=== PATIENT | male | born 1975 | race Caucasian/White ===

== ENCOUNTER → 2018-04-04 17:05 | Outpatient (CLI) | payer OTHER, SELFPAY | PROVIDERS: Visit Provider Family Medicine | DX: J02.9 Acute pharyngitis, unspecified (principal) | CPT/HCPCS: 87070 ==

== ENCOUNTER → 2018-08-08 13:00 | Outpatient (CLI) | payer OTHER, SELFPAY | DX: Z23 Encounter for immunization (principal) | CPT/HCPCS: 90471; 90686 ==

== ENCOUNTER → 2018-10-26 07:59 | Outpatient (CLI) | payer OTHER, SELFPAY ==
[2018-10-26 11:39] LABS: Thyroid Stimulating Hormone 4.98 uIU/mL (0.47-4.68)
== END ==
PROVIDERS: Visit Provider Family Medicine
DX: Z13.29 Encounter for screening for other suspected endocrine disorder (principal)
CPT/HCPCS: 36415; 84443

== ENCOUNTER → 2019-06-12 13:00 | Outpatient (CLI) | payer OTHER, SELFPAY | DX: E03.9 Hypothyroidism, unspecified (principal); Z13.29 Encounter for screening for other suspected endocrine disorder | CPT/HCPCS: 84439; 84443; 86376 ==

== ENCOUNTER → 2019-06-12 17:07 | Outpatient (ROUT) | payer OTHER, SELFPAY ==
[2019-06-12 18:40] LABS: TSH w/ Reflex to FT4 9.08 uIU/mL (0.47-4.68)
[2019-06-12 19:07] LABS: Free T4, Direct Thyroxine 0.91 ng/dL (0.78-2.19)
[2019-06-16 16:50] LABS: Hepatitis B Surf AB Imm QUANT 118 mIU/mL (> 9)
[2019-06-16 17:21] LABS: Thyroid Peroxidase Antibodies 1 IU/mL (< 9)
== END ==
PROVIDERS: Family Medicine
DX: E03.9 Hypothyroidism, unspecified (principal); Z13.29 Encounter for screening for other suspected endocrine disorder
CPT/HCPCS: 36415; 84439; 84443; 86317; 86376

== ENCOUNTER → 2019-07-23 14:16 | Outpatient (CLI) | payer OTHER, SELFPAY | DX: Z23 Encounter for immunization (principal) | CPT/HCPCS: 90471; 90686 ==

== ENCOUNTER → 2020-07-16 08:08 | Outpatient (CLI) | payer OTHER, SELFPAY ==
[2020-07-16 08:39] LABS: COVID19 -Nasal RAPID Negative (Negative)
[2020-07-16 16:44] LABS: COVID19 -Nasal RAPID Negative (Negative)
== END ==
PROVIDERS: Visit Provider Physician Assistant
DX: Z01.812 Encounter for preprocedural laboratory examination (principal); Z03.818 Encounter for observation for suspected exposure to other biological agents ruled out
CPT/HCPCS: 87635

== ENCOUNTER → 2020-07-19 12:14 | Outpatient (CLI) | payer OTHER, SELFPAY ==
[2020-07-19 13:16] LABS: COVID19 -Nasal RAPID Negative (Negative)
== END ==
PROVIDERS: Visit Provider Physician Assistant
DX: Z03.818 Encounter for observation for suspected exposure to other biological agents ruled out (principal)
CPT/HCPCS: 87635

== ENCOUNTER → 2020-08-27 15:24 | Outpatient (CLI) | payer OTHER, SELFPAY ==
[2020-08-27 16:53] LABS: COVID19 -Nasal RAPID Negative (Negative)
== END ==
PROVIDERS: Visit Provider Family Medicine
DX: Z11.59 Encounter for screening for other viral diseases (principal)
CPT/HCPCS: 87635

== ENCOUNTER → 2020-09-09 15:35 | Outpatient (CLI) | payer OTHER, SELFPAY | PROVIDERS: Referring Provider Internal Medicine; Visit Provider Internal Medicine | DX: Z23 Encounter for immunization (principal) | CPT/HCPCS: 90471; 90686 ==

== ENCOUNTER → 2020-10-15 07:52 | Outpatient (CLI) | payer OTHER, SELFPAY ==
[2020-10-15] MEDS: COVID-19 VACC(MODERNA-1)/PF 100 MCG/0.5 ML VIAL IM (07:56)
== END ==
PROVIDERS: Visit Provider Internal Medicine
DX: Z23 Encounter for immunization (principal)
CPT/HCPCS: 0011A; 91301

== ENCOUNTER → 2020-11-11 07:59 | Outpatient (CLI) | payer OTHER, SELFPAY ==
[2020-11-11] MEDS: COVID-19 VACC #2, MRNA(MOD) 100 MCG/0.5 ML VIAL IM (08:03)
== END ==
PROVIDERS: Visit Provider Internal Medicine
DX: Z23 Encounter for immunization (principal)
CPT/HCPCS: 0012A; 91301

== ENCOUNTER → 2021-06-04 09:02 | Outpatient (CLI) | payer OTHER, SELFPAY ==
[2021-06-04 10:12] LABS: COVID19 -Nasal RAPID Negative (Negative)
== END ==
PROVIDERS: Visit Provider Nurse Practitioner
DX: Z20.822 Contact with and (suspected) exposure to COVID-19 (principal)
CPT/HCPCS: 87635

== ENCOUNTER → 2021-07-21 08:55 | Outpatient (CLI) | payer OTHER, SELFPAY ==
[2021-07-21 09:16] LABS: COVID19 -Nasal RAPID Negative (Negative)
== END ==
PROVIDERS: Referring Provider Family Medicine; Visit Provider Family Medicine
DX: Z20.822 Contact with and (suspected) exposure to COVID-19 (principal)
CPT/HCPCS: 87635

== ENCOUNTER → 2021-09-11 19:29 | Outpatient (CLI) | payer OTHER, SELFPAY | PROVIDERS: Referring Provider Internal Medicine; Visit Provider Internal Medicine | DX: Z23 Encounter for immunization (principal) | CPT/HCPCS: 90471; 90686 ==

== ENCOUNTER → 2021-10-04 16:21 | Outpatient (CLI) | payer OTHER, SELFPAY ==
[2021-10-04 16:59] LABS: COVID19 -Nasal RAPID Negative (Negative)
== END ==
PROVIDERS: Referring Provider Family Medicine; Visit Provider Family Medicine
DX: Z20.822 Contact with and (suspected) exposure to COVID-19 (principal)
CPT/HCPCS: 87635

== ENCOUNTER → 2022-05-13 17:49 | Outpatient (CLI) | payer OTHER, SELFPAY ==
[2022-05-14 00:07] LABS: Free T4, Direct Thyroxine 1.26 ng/dL (0.78-2.19)
== END ==
PROVIDERS: Referring Provider Family Medicine; Visit Provider Family Medicine
DX: E03.9 Hypothyroidism, unspecified (principal)
CPT/HCPCS: 36415; 84439; 84443

== ENCOUNTER → 2022-07-16 15:50 | Outpatient (CLI) | payer OTHER, SELFPAY | PROVIDERS: Referring Provider Internal Medicine; Visit Provider Internal Medicine | DX: Z23 Encounter for immunization (principal) | CPT/HCPCS: 90471; 90686 ==

== ENCOUNTER → 2023-09-15 09:21 | Outpatient (CLI) | payer OTHER, SELFPAY | PROVIDERS: Referring Provider Family Medicine; Visit Provider Family Medicine | DX: Z23 Encounter for immunization (principal) | CPT/HCPCS: 90471; 90686 ==

== ENCOUNTER → 2024-09-10 17:14 | Outpatient (CLI) | payer OTHER, SELFPAY | PROVIDERS: Referring Provider Internal Medicine; Visit Provider Internal Medicine | DX: Z23 Encounter for immunization (principal) | CPT/HCPCS: 90471; 90656 ==